=== PATIENT | female | born 1995 | race Caucasian/White ===

== ENCOUNTER 2016-06-20 07:32 | Emergency (ER) | payer BC ==
[~2016-06-20] VITALS: Ht 165.1 cm; Wt 76.4 kg
[~2016-06-20 07:32] MED LIST: IMITREX25 MG PO; MICROGESTIN FE1 EACH PO; TOPAMAX25 MG PO; TYLENOL WITH C1 EACH PO
[2016-06-20 08:22] LABS: CHLORIDE 103 mEq/L (99-109); POTASSIUM 3.9 mEq/L (3.7-5.4); SODIUM 138 mEq/L (136-147)
[2016-06-20 08:24] LABS: GLUCOSE 109 mg/dL (70-99)
[2016-06-20 08:25] LABS: ANION GAP 9 MEQ/L (2-14)
[2016-06-20 08:26] LABS: TOTAL BILIRUBIN 0.4 mg/dL (0.0-1.0)
[2016-06-20 08:28] LABS: ALKALINE PHOSPHATASE 52 IU/L (3-129); GFR ESTIMATE (CALCULATED) > 59 mL/min/
[2016-06-20 08:29] LABS: UREA NITROGEN (BUN) 15 mg/dL (9-23)
[2016-06-20 08:31] LABS: LIPASE 12 U/L (1.0-51.0)
[2016-06-20 08:41] LABS: QUANTITATIVE HCG < 4.0 MIU/ML
[2016-06-20 08:44] LABS: MCH 28.8 PG (29.0-34.0); MCHC 32.7 G/DL (30.0-36.0); MEAN PLAT.VOLUME 11.6 uM^3 (9.5-12.4); PLATELET COUNT 180 K/uL (156-360); RBC DIS.WIDTH-CV 12.5 % (11.8-14.6); RBC DIS.WIDTH-SD 40.3 % (39-53); RED BLOOD COUNT 4.66 M/uL (3.80-5.20); WHITE BLOOD COUNT 8.3 K/uL (4.1-10.2)
[2016-06-20 09:33] LABS: ADD MIUA? YES; BILIRUBIN NEGATIVE; BLOOD SMALL; COLOR AMBER ((YELLOW)); GLUCOSE (STRIP) NEGATIVE; KETONES NEGATIVE; LEUKOCYTES TRACE; NITRITE POSITIVE; PROTEIN (STRIP) 100
[2016-06-20 09:36] LABS: SPECIFIC GRAVITY 1.046 (1.000-1.030)
[2016-06-20] MEDS ORDERED: ZOFRAN ODT4 MG PO (09:43)
[2016-06-20] MEDS ORDERED: KEFLEX500 MG PO (09:43)
[2016-06-20 10:11] LABS: BACTERIA 1+ /HPF; CRYSTALS PRESENT; EPITHELIAL CELLS 1+ /HPF; MUCUS NONE SEEN /LPF; UCUL ADDED? NO
[2016-06-20 10:12] VITALS: BP 100/64
[2016-06-20 11:55] LABS: RED BLOOD CELLS 0-5 /HPF (0-5)
[2016-06-20 11:56] LABS: URIC ACID CRYSTALS 1+ /HPF
== END 2016-06-20 10:13 | disposition home or self-care (01) ==
LOC: EME 07:32
PROVIDERS: Nurse Practitioner Family
DX: N39.0 Urinary tract infection, site not specified (principal); K59.00 Constipation, unspecified
CPT/HCPCS: 74177; 80053; 81003; 83690; 84702; 85027; 99281; 99284; J1885; J2405; J7030